=== PATIENT | female | born 1975 | race Caucasian/White ===

== ENCOUNTER 2016-03-04 09:37 | Emergency (ER) | payer SELFPAY ==
[~2016-03-04] VITALS: Ht 154.9 cm; Wt 70.0 kg
[2016-03-04 09:39] VITALS: BP 153/92; PULSE 90; RESP 20; TEMP 97.9; O2SAT 99
[2016-03-04] MEDS ORDERED: METOCLOPRAMIDE HCL 10 MG/2 ML VIAL IM ONE (10:00)
[2016-03-04] MEDS ORDERED: KETOROLAC TROMETHAMINE 60 MG/2 ML (IM) VIAL IM ONE (10:00)
[2016-03-04] MEDS ORDERED: diphenhydrAMINE HCL 50 MG/ML VIAL IM ONE (10:00)
--- NOTE | 2016-03-04 10:34 | PD ---
HPI Chief Complaint: Headache Time Seen by Provider: 09:50 Travel History International Travel<30 days: No Contact w/Intl Traveler<30days: No Traveled to known affect area: No History of Present Illness HPI Patient is a 40-year-old female who presents emergency evaluation of a headache. Patient states the headache is similar to headache she has had in the past. She states the pain starts in the back of her head and radiates forward. She reports a history of migraines, she states her pain is usually relieved with Excedrin or BC powder. Patient took BC powder this morning at approximately 8 AM with no relief of symptoms. She denies any photophobia, nausea, visual changes. She denies any other complaints at this time. PFS Past Medical History Migraines: Yes ?: Not : 2 Para: 1 Past Surgical History Section: Yes (3) Gynecologic Surgery: Yes () Social History Alcohol Use: No Tobacco Use: Yes Substance Use: No Allergies-Medications (Allergen,Severity, Reaction): Coded Allergies: No Known Allergies (Verified , 03/04/16) Reported Meds & Prescriptions Reported Meds & Active Scripts Active No Active Prescriptions or Reported Medications Review of Systems Except as stated in HPI: all other systems reviewed are Neg General / Constitutional: No: Fever, Chills Eyes: No: Blurred Vision, Visual changes HENT: Positive: Headaches, No: Neck Pain Cardiovascular: No: Chest Pain or Discomfort Respiratory: No: Shortness of Breath Gastrointestinal: No: Nausea, Abdominal Pain Physical Exam Narrative GENERAL: Well-nourished, well-developed patient. SKIN: Warm and dry. HEAD: Normocephalic. EYES: No scleral icterus. No injection or drainage. NECK: Supple, trachea midline. No JVD or lymphadenopathy. CARDIOVASCULAR: Regular rate and rhythm without murmurs, gallops, or rubs. RESPIRATORY: Breath sounds equal bilaterally. No accessory muscle use. GASTROINTESTINAL: Abdomen soft, non-tender, nondistended. MUSCULOSKELETAL: No cyanosis, or edema. BACK: Nontender without obvious deformity. No CVA tenderness. NEUROLOGICAL: Awake and alert. Cranial nerves II through XII intact. Motor and sensory grossly within normal limits. Five out of 5 muscle strength in all muscle groups. Normal speech. Data Data Last Documented VS Vital Signs Date Time Temp Pulse Resp B/P Pulse Ox O2 Delivery O2 Flow Rate FiO2 1/25/17 09:39 97.9 90 20 153/92 99 Room Air Orders Ketorolac Inj (Toradol Inj) (03/04/16 10:00) Diphenhydramine Inj (Benadryl Inj) (03/04/16 10:00) Metoclopramide Inj (Reglan Inj) (03/04/16 10:00) MDM Medical Decision Making Medical Screen Exam Complete: Yes Emergency Medical Condition: Yes Interpretation(s) Vital Signs Date Time Temp Pulse Resp B/P Pulse Ox O2 Delivery O2 Flow Rate FiO2 03/04/16 09:39 97.9 90 20 153/92 99 Room Air Differential Diagnosis Migraine versus cluster headache versus tension-type headache versus sinusitis versus other Narrative Course Patient is a 40-year-old female who presents emergency for evaluation of a headache. Patient reports her symptoms are consistent with her previous headaches however this time Excedrin and BC powder are not alleviating her symptoms. She is neurologically intact, medications ordered. Patient reports improvement in headache symptoms after medication administration. She remains neurologically intact. She is encouraged follow- up with her primary doctor for ongoing evaluation and management. She is also encouraged to return to the emergency department for new or worsening symptoms. Patient stable for discharge. Diagnosis Primary Impression: Head ache Qualified Code: R51 - Nonintractable headache, unspecified chronicity pattern , unspecified headache type Referrals: Primary Care Physician Patient Instructions: Acute Headache (ED), General Instructions Additional Instructions: Follow-up with your primary doctor Return to the emergency department for any new or worsening symptoms Med/Other Pt SpecificInfo: No Change to Meds Scripts No Active Prescriptions or Reported Meds Disposition: 01 DISCHARGE HOME Condition: Stable Mila Weber Mar 04, 2016 10:34
== END 2016-03-04 11:49 | disposition home or self-care (01) ==
LOC: NEPB 09:37
DX: R51 Headache (principal); Z72.0 Tobacco use
CPT/HCPCS: 96372; 96374; 99283; J1200; J1885; J2765

== ENCOUNTER 2017-07-19 10:20 | Emergency (ER) | payer OTHER ==
[~2017-07-19] VITALS: Ht 157.5 cm; Wt 70.0 kg
[2017-07-19 10:30] VITALS: BP 134/61; PULSE 100; RESP 16; TEMP 98.3; O2SAT 100
[2017-07-19] MEDS ORDERED: DICL75TA PO (11:56)
[2017-07-19] MEDS ORDERED: TRAM50TA PO (11:56)
[2017-07-19] MEDS ORDERED: PRED20 PO (11:56)
--- NOTE | 2017-07-19 12:01 | PD ---
HPI Chief Complaint: Pain: Acute or Chronic Time Seen by Provider: 11:38 Travel History International Travel<30 days: No Contact w/Intl Traveler<30days: No Traveled to known affect area: No History of Present Illness HPI 41-year-old female that presents to the ED for evaluation of bilateral wrist pain. Per patient has had this for 4 days. Per patient has a history of carpal tunnel and she gets flareups here and there. Per patient she did not do anything and she woke up with this pain. Pain is mostly to the first, second, third and fourth digits. Bilaterally. More noticeable on the left than the right per patient. Denies any injury or fall. Per patient hurts to make a full fist but able to do it. Denies dropping things. Denies any numbness, tingling, weakness but states having some burning sensation of the tips of her fingers. No chest pain or shortness of breath. Per patient the pain is 8 out of 10. Has not seen anybody for this. Has not seen a specialist for this. No other medical issues at this time. PFSH Past Medical History Migraines: Yes ?: Not : 2 Para: 1 Past Surgical History Section: Yes (3) Gynecologic Surgery: Yes () Social History Alcohol Use: No Tobacco Use: Yes Substance Use: No Allergies-Medications (Allergen,Severity, Reaction): Coded Allergies: No Known Allergies (Verified , 03/04/16) Reported Meds & Prescriptions Reported Meds & Active Scripts Active Tramadol (Tramadol HCl) 50 Mg Tab 50 Mg PO Q6H PRN Prednisone 20 Mg Tab 20 Mg PO BID PRN Diclofenac Sodium DR (Diclofenac Sodium) 75 Mg Tabdr 75 Mg PO BID PRN Review of Systems Except as stated in HPI: all other systems reviewed are Neg Physical Exam Narrative GENERAL: SKIN: Warm and dry. HEAD: Atraumatic. Normocephalic. EYES: Pupils equal and round. No scleral icterus. No injection or drainage. ENT: No nasal bleeding or discharge. Mucous membranes pink and moist. NECK: Trachea midline. No JVD. CARDIOVASCULAR: Regular rate and rhythm. RESPIRATORY: No accessory muscle use. Clear to auscultation. Breath sounds equal bilaterally. GASTROINTESTINAL: Abdomen soft, non-tender, nondistended. Hepatic and splenic margins not palpable. MUSCULOSKELETAL: Extremities without clubbing, cyanosis, or edema. No obvious deformities. Full range of motion of the upper and lower extremities bilaterally. 2+ pulses bilaterally. Pain reproducible with flexion of the wrist in the hands bilaterally. Phalen's test positive bilaterally. No obvious neurological deficits noted. 5 out of 5 strength. 2+ pulses bilaterally. Sensation intact bilaterally. NEUROLOGICAL: Awake and alert. No obvious cranial nerve deficits. Motor grossly within normal limits. Five out of 5 muscle strength in the arms and legs. Normal speech. PSYCHIATRIC: Appropriate mood and affect; insight and judgment normal. Data Data Last Documented VS Vital Signs Date Time Temp Pulse Resp B/P (MAP) Pulse Ox O2 Delivery O2 Flow Rate FiO2 07/19/17 10:30 98.3 100 16 134/61 (85) 100 Orders Orders Splint Or Brace Apply/Monitor (07/19/17 11:51) Ed Discharge Order (07/19/17 11:55) Mandatory Outpatient Referral (07/19/17 11:57) [facility] Medical Decision Making Medical Screen Exam Complete: Yes Emergency Medical Condition: Yes Medical Record Reviewed: Yes Differential Diagnosis Carpal tunnel versus tendinopathy versus acute on chronic pain Narrative Course 41-year-old female that presents to the ED for evaluation of bilateral wrist pain. Patient was properly examined and was found to have signs and symptoms consistent appears to be carpal tunnel bilaterally. At this time patient was given braces bilaterally. Given short prescription for pain medication as well as anti-inflammatories. Close follow-up with PCP. See ED if worsening symptoms. Hand surgery mandatory referral was ordered. 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 Diagnosis Primary Impression: Carpal tunnel syndrome, bilateral Referrals: Bebeto Bourne III, MD, Srikanth MD Henry, Sarah Elizabeth MD Patient Instructions: General Instructions Additional Instructions: Take medications as prescribed. Follow-up with hand surgeon See ED for any worsening symptoms. Do not drink or drive while taking pain medication. Apply ice or heat as needed for pain Med/Other Pt SpecificInfo: Prescription(s) given Scripts Tramadol (Tramadol) 50 Mg Tab 50 MG PO Q6H Y for PAIN, #12 TAB 0 Refills Prov: Sundya Magana MD 07/19/17 Prednisone (Prednisone) 20 Mg Tab 20 MG PO BID Y for PAIN SCALE 1 TO 10, #10 TAB 0 Refills Prov: Sunday Magana MD 07/19/[address] (Diclofenac Sodium DR) 75 Mg Tabdr 75 MG PO BID Y for PAIN SCALE 1 TO 10, #20 TAB 0 Refills Prov: Sunday Magana MD 07/19/17 Disposition: 01 DISCHARGE HOME Condition: Delta Coombs Jul 19, 2017 12:01
== END 2017-07-19 12:17 | disposition home or self-care (01) ==
LOC: NEPK 10:20
DX: G56.03 Carpal tunnel syndrome, bilateral upper limbs (principal); Z72.0 Tobacco use
CPT/HCPCS: 99283; L3908